=== PATIENT | female | born 1990 | race Caucasian/White ===

== ENCOUNTER → 2019-07-29 | Outpatient (CLI) | payer SELFPAY | LOC: OD 10:25 | PROVIDERS: ATTEND Obstetrics & Gynecology Reproductive Endocrinology | DX: Z31.83 Encounter for assisted reproductive fertility procedure cycle (principal) | CPT/HCPCS: 36415; 82670; 84144; 84702 ==

== ENCOUNTER → 2019-08-12 | Outpatient (CLI) | payer SELFPAY | LOC: OD 11:12 | PROVIDERS: ATTEND Nurse Practitioner Primary Care | DX: Z31.83 Encounter for assisted reproductive fertility procedure cycle (principal) | CPT/HCPCS: 36415; 82670; 84144; 84702 ==

== ENCOUNTER → 2019-08-19 | Outpatient (CLI) | payer SELFPAY | LOC: OD 10:17 | PROVIDERS: ATTEND Obstetrics & Gynecology Reproductive Endocrinology | DX: Z31.83 Encounter for assisted reproductive fertility procedure cycle (principal) | CPT/HCPCS: 36415; 84144 ==

== ENCOUNTER → 2019-09-30 | Outpatient (CLI) | payer SELFPAY | LOC: OD 08:58 | PROVIDERS: ATTEND Nurse Practitioner Primary Care | DX: Z31.83 Encounter for assisted reproductive fertility procedure cycle (principal) | CPT/HCPCS: 36415; 82670; 84144; 84702 ==

== ENCOUNTER → 2019-10-14 | Outpatient (CLI) | payer SELFPAY | LOC: OD 07:49 | PROVIDERS: ATTEND Obstetrics & Gynecology Reproductive Endocrinology | DX: Z31.41 Encounter for fertility testing (principal) | CPT/HCPCS: 36415; 82670; 84144 ==

== ENCOUNTER → 2019-10-18 | Outpatient (CLI) | payer SELFPAY | LOC: OD 11:43 | PROVIDERS: ATTEND Obstetrics & Gynecology Reproductive Endocrinology | DX: Z31.41 Encounter for fertility testing (principal) | CPT/HCPCS: 36415; 84144 ==

== ENCOUNTER → 2019-10-21 | Outpatient (CLI) | payer SELFPAY | LOC: OD 09:53 | PROVIDERS: ATTEND Obstetrics & Gynecology Reproductive Endocrinology | DX: Z31.41 Encounter for fertility testing (principal) | CPT/HCPCS: 36415; 84144 ==

== ENCOUNTER → 2019-11-07 | Outpatient (CLI) | payer SELFPAY | LOC: OD 10:19 | PROVIDERS: ATTEND Obstetrics & Gynecology Reproductive Endocrinology | DX: Z31.41 Encounter for fertility testing (principal) | CPT/HCPCS: 36415; 82670; 84144; 84702 ==

== ENCOUNTER → 2019-11-14 | Outpatient (CLI) | payer SELFPAY | LOC: OD 10:43 | PROVIDERS: ATTEND Obstetrics & Gynecology Reproductive Endocrinology | DX: Z31.41 Encounter for fertility testing (principal) | CPT/HCPCS: 36415; 82670; 84144; 84702 ==

== ENCOUNTER → 2019-11-24 | Outpatient (CLI) | payer SELFPAY | LOC: OD 09:39 | PROVIDERS: ATTEND Obstetrics & Gynecology Reproductive Endocrinology | DX: Z31.41 Encounter for fertility testing (principal) | CPT/HCPCS: 36415; 82670; 84144 ==

== ENCOUNTER → 2019-12-08 | Outpatient (CLI) | payer SELFPAY | LOC: OD 11:17 | PROVIDERS: ATTEND Obstetrics & Gynecology Reproductive Endocrinology | DX: Z31.41 Encounter for fertility testing (principal) | CPT/HCPCS: 36415; 82670; 84144 ==